=== PATIENT | male | born 1975 | race African-American/Black ===

== ENCOUNTER 2019-04-25 21:13 | Emergency (ER) | payer MEDICAID ==
[~2019-04-25] VITALS: Ht 177.8 cm; Wt 128.8 kg
[2019-04-25 21:22] VITALS: BP_SYST 157
--- NOTE | 2019-04-25 21:25 | NUR ---
Patient to ER bed 04 to gown for evaluation. Side rails up.
--- NOTE | 2019-04-25 21:30 | NUR ---
Dr. Dorsey bedside for Pt eval
--- NOTE | 2019-04-25 21:40 | NUR ---
Pt BIB family to ED C/O testicular pain for 1 day. Pt reports yesterday upon exiting his vehicle, he felt a gradual onset, bilateral testicular pain. Pain is moderate in severity, nonradiating, constant. Pt reports taking pain medications with minimal relief. He reports upon waking up today having improved pain on the right testicle. He reports having associated gradually worsening swelling to the left testicle. No other complaints and or injuries noted. VSS no s/s of acute distress. Resting on gurney with rails up
[2019-04-25] MEDS ORDERED: MORPHINE 2 MG/ML INJ. SYRINGE IM ONE (21:45)
--- NOTE | 2019-04-25 22:25 | NUR ---
US Tech bedside for scan procedure, with ED Staff bedside for monitoring and assistance
--- NOTE | 2019-04-25 22:50 | NUR ---
US procedure well tolerated
[2019-04-25] MEDS ORDERED: AZITHROMYCIN 250 MG TABLET PO ONE (23:00)
[2019-04-25] MEDS ORDERED: cefTRIAXone 250 MG VIAL IM ONE (23:00)
[2019-04-25 23:30] VITALS: BP_SYST 148
--- NOTE | 2019-04-25 23:30 | NUR ---
Patient given written and verbal discharge instructions and verbalizes understanding. ER MD discussed with patient the results and treatment provided. Patient in stable condition. ID arm band removed. Rx of Doxycycline, [place], Motrin, and Narcan given. Patient educated on pain management and to follow up with PMD. Pain Scale 0/10 Opportunity for questions provided and answered. Medication side effect fact sheet provided.
== END 2019-04-25 23:30 | disposition home or self-care (01) ==
LOC: SED 21:13
DX: N45.1 Epididymitis (principal)
CPT/HCPCS: 76870; 96372; 99284; J0696; J2270; Q0144

== ENCOUNTER 2019-09-20 14:13 | Emergency (ER) | payer MEDICAID ==
[~2019-09-20] VITALS: Ht 180.3 cm; Wt 124.7 kg
--- NOTE | 2019-09-20 14:13 | NUR ---
Patient to bed and gown. Side rails up.
[2019-09-20 14:22] VITALS: BP_SYST 149
--- NOTE | 2019-09-20 14:30 | NUR ---
Bev Kasper [employer] at bedside for examination.
--- NOTE | 2019-09-20 14:30 | NUR ---
Patient brought in by self with c/o of testicular pain and swelling x 2 days. Patient in no signs of distress at this time and able to communicate needs.
--- NOTE | 2019-09-20 17:07 | NUR ---
Patient to ER bed to gown for evaluation. Side rails up. Addendum: 09/20/19 at 1707 by MAGNUS Patient to bed 5 to gown for exam.
[2019-09-20] MEDS ORDERED: cefTRIAXone 1 GM in LIDOCAINE 1%, 20 ML MDV 2.1 ML IM ONE (17:45)
[2019-09-20 18:35] VITALS: BP_SYST 143
--- NOTE | 2019-09-20 18:35 | NUR ---
Patient given written and verbal discharge instructions and verbalizes understanding. ER MD discussed with patient the results and treatment provided. Patient in stable condition. ID arm band removed. Rx of doxycycline and motrin given. Patient educated on pain management and to follow up with PMD. Pain Scale 0/10.Opportunity for questions provided and answered. Medication side effect fact sheet provided.
== END 2019-09-20 18:35 | disposition home or self-care (01) ==
LOC: SED 14:13
DX: N45.1 Epididymitis (principal); R03.0 Elevated blood-pressure reading, without diagnosis of hypertension; F12.90 Cannabis use, unspecified, uncomplicated
CPT/HCPCS: 76870; 81002; 96372; 99284; J0696; J2001

== ENCOUNTER 2024-04-28 11:41 | Emergency (ER) | payer OTHER, MEDICAID ==
[~2024-04-28] VITALS: Ht 180.3 cm; Wt 129.3 kg
[2024-04-28 11:41] VITALS: BP_SYST 126; PULSE 89; RESP 18; TEMP 97.6; O2SAT 96
[2024-04-28] MEDS: cefTRIAXone 1 GM in LIDOCAINE 1%, 20 ML MDV 2.1 ML IM ONE (12:15)
[2024-04-28] MEDS: KETOROLAC TROMETHAMINE 30 MG VIAL IM ONE (12:16)
[2024-04-28 12:26] LABS: BILIRUBIN,URINE 1+ (NEGATIVE); CLARITY/URINE CLEAR (CLEAR); COLOR,URINE YELLOW (YELLOW); GLUCOSE,URINE NEGATIVE (NEGATIVE); KETONES,URINE 2+ (NEGATIVE); LEUKOCYTE ESTERASE ,URINE NEGATIVE (NEGATIVE); NITRITE, URINE NEGATIVE (NEGATIVE); PROTEIN URINE 1+ (NEGATIVE)
[2024-04-28 12:37] LABS: BLOOD, URINE TRACE (NEGATIVE)
[2024-04-28 12:39] LABS: BACTERIA,URINE RARE /HPF (None Seen); MUCUS,URINE 1+ /LPF (None Seen); WBC,URINE 0-3 /HPF (0-3)
[2024-04-28 13:26] LABS: HEMATOCRIT 44.4 % (36-54); HEMOGLOBIN 14.4 g/dL (14.0-18.0); MEAN CORPUSCULAR HEMOGLOBIN 30 pg (27-31); MEAN CORPUSCULAR HGB CONC 33 % (32-36); MEAN CORPUSCULAR VOLUME 94 fL (79.0-98.0); PLATELET COUNT (AUTO) 233 K/uL (130-430); RED BLOOD CELL COUNT(AUTO) 4.74 MIL/uL (4.2-6.2); RED CELL DISTRIBUTION WIDTH 14.3 % (9.0-15.0); WHITE BLOOD COUNT (AUTO) 24.5 K/uL (4.8-10.8)
[2024-04-28 13:28] LABS: ALBUMIN 3.2 g/dL (3.4-4.8); BILIRUBIN,DIRECT 0.2 mg/dL (0.0-0.3); CALCIUM 9.1 mg/dL (8.4-11.0); CREATININE 1.34 mg/dL (0.55-1.30); POTASSIUM 4.1 mmol/L (3.5-5.1); TOTAL BILIRUBIN 0.7 mg/dL (0.0-1.0); TOTAL PROTEIN, SERUM 7.2 g/dL (6.4-8.3)
[2024-04-28 14:15] LABS: BAND % (MANUAL) 8 % (0-6); BASOPHILS % (MANUAL) 0 % (0-2); EOSINOPHILS % (MANUAL) 0 % (0-7); LYMPHOCYTES % (MANUAL) 7 % (20-46); MONOCYTES % (MANUAL) 6 % (0-11)
[2024-04-28 14:16] LABS: PLATELET ESTIMATE ADEQUATE (ADEQUATE)
[2024-04-28 15:12] LABS: ALBUMIN 3.2 g/dL (3.4-4.8); CALCIUM 8.9 mg/dL (8.4-11.0); CREATININE 1.5 mg/dL (0.55-1.30); POTASSIUM 4.3 mmol/L (3.5-5.1); TOTAL BILIRUBIN 0.6 mg/dL (0.0-1.0); TOTAL PROTEIN, SERUM 7.2 g/dL (6.4-8.3)
[2024-04-28] MEDS ORDERED: LEVO-62 PO (15:38)
[2024-04-28 15:48] VITALS: BP_SYST 126; PULSE 89; RESP 18; TEMP 97.6; O2SAT 96
== END 2024-04-28 15:47 | disposition home or self-care (01) ==
LOC: SED 11:41
DX: N45.2 Orchitis (principal)
CPT/HCPCS: 99285; 74176; 96374; 85027; 80053; 81001; 83690; 85007; 36415; 76870; 96372; 81000; 80076; 80048; 81015; J0696; J1885; J2001